=== PATIENT | male | born 1940 | race Caucasian/White ===

== ENCOUNTER → 2017-07-02 | Outpatient (CLI) | payer OTHER ==
[~2017-07-02] MED LIST: DAILY VITAMIN1 TAB PO; FLOMAX0.4 MG PO; NATURE'S BLEND400 I1 PO
== END | disposition home or self-care (01) ==
LOC: US 11:30
DX: R60.0 Localized edema (principal); I82.402 Acute embolism and thrombosis of unspecified deep veins of left lower extremity

== ENCOUNTER 2020-12-03 19:16 | Inpatient (IN) | payer MEDICARE ==
[~2020-12-03] VITALS: Ht 180.3 cm; Wt 114.1 kg
[2020-12-03 19:31] VITALS: BP 119/79
[2020-12-03 19:37] LABS: BILIRUBIN Negative (Negative); BLOOD Negative (Negative); CLARITY Clear (Clear); COLOR Yellow (Yellow); GLUCOSE Negative (Negative); KETONE Negative (Negative); LEUKO ESTERASE Negative (Negative); NITRITE Negative (Negative); PH 5.5 (4.5-8.0)
[2020-12-03 19:47] LABS: MUCOUS TRACE
[2020-12-03 20:26] LABS: BASO # 0.1 10*3/uL (0.0-0.1); BASO % 0.5 % (0.0-1.0); EOS # 0.2 10*3/uL (0.0-0.4); EOS % 1.8 % (1.0-4.0); LYMPH # 2.2 10*3/uL (1.3-4.4); LYMPH % 21.5 % (27.0-41.0); MEAN CELL VOLUME 81.3 fl (80.0-94.0); MEAN CORPUSCULAR HGB 28.2 pg (27.0-31.0); MEAN CORPUSCULAR HGB CONC 34.7 g/dl (33.0-37.0); MEAN PLATELET VOLUME 9.6 fl (9.6-12.3); MONO # 0.8 10*3/uL (0.1-1.0); MONO % 8.4 % (3.0-9.0); NEUT # 6.7 10*3/uL (2.3-7.9); NEUT % 67.5 % (47.0-73.0); PLATELET COUNT AUTOMATED 193 10*3/uL (130-400); RED BLOOD COUNT 5.29 10*6/uL (4.50-5.90)
[2020-12-03 20:37] LABS: URINE AMPHETAMINES < 1000 (1000ng/ml); URINE BARBITURATES < 200 (200ng/ml); URINE BENZODIAZEPINES < 200 (200ng/ml); URINE CANNABINOIDS (THC) < 50 (50ng/ml); URINE COCAINE < 300 (300ng/ml); URINE METHADONE < 300 (300ng/ml); URINE OPIATES < 300 (300ng/ml)
[2020-12-03 20:38] LABS: URINE PHENCYCLIDINE < 25 (25ng/ml)
[2020-12-03 20:41] LABS: ACETAMINOPHEN (TYLENOL) < 2.0 ug/ml (10-30); ALBUMIN 3.2 gm/dl (3.1-4.5); ALKALINE PHOSPHATASE 89 U/L (45-117); BUN 19 mg/dl (7-24); CHLORIDE 106 mmol/L (98-107); CREATININE 1.14 mg/dL (0.70-1.30); ETHYL ALCOHOL < 3.0 mg/dl (<3); POTASSIUM 3.8 mmol/L (3.5-5.1); SGOT/AST 19 IU/L (3-35); SGPT/ALT 26 U/L (12-78); SODIUM 138 mmol/L (136-145); TOTAL PROTEIN 7.2 gm/dL (6.4-8.2)
[2020-12-04] VITALS (8 sets, daily range): BP systolic 118–130; BP diastolic 63–111
[2020-12-04] MEDS ORDERED: EXELON1 EAC1 T (07:59)
[2020-12-04] MEDS ORDERED: SERTRALINE HYDR25 MG PO (08:00)
[2020-12-04] MEDS ORDERED: RISPERDAL0.5 MG PO (08:00)
[2020-12-04] MEDS ORDERED: HYDR25T PO (08:01)
[2020-12-05] VITALS: BP 127/89
[2020-12-05 06:13] LABS: ALBUMIN 3.2 gm/dl (3.1-4.5); BUN 19 mg/dl (7-24); CHLORIDE 104 mmol/L (98-107); CHOLESTEROL 177 mg/dL (<200); SGOT/AST 22 IU/L (3-35); SGPT/ALT 26 U/L (12-78); SODIUM 140 mmol/L (136-145); TOTAL PROTEIN 6.9 gm/dL (6.4-8.2); TRIGLYCERIDES 95 mg/dl (<150)
[2020-12-05 06:17] LABS: BASO % 0.4 % (0.0-1.0); EOS # 0.2 10*3/uL (0.0-0.4); EOS % 1.9 % (1.0-4.0); HEMATOCRIT 46.4 % (42.0-52.0); LYMPH % 21.2 % (27.0-41.0); MEAN CELL VOLUME 82.7 fl (80.0-94.0); MEAN CORPUSCULAR HGB 27.8 pg (27.0-31.0); MEAN CORPUSCULAR HGB CONC 33.6 g/dl (33.0-37.0); MEAN PLATELET VOLUME 10.9 fl (9.6-12.3); MONO # 0.9 10*3/uL (0.1-1.0); MONO % 9.5 % (3.0-9.0); NEUT # 6.2 10*3/uL (2.3-7.9); NEUT % 66.8 % (47.0-73.0); PLATELET COUNT AUTOMATED 180 10*3/uL (130-400); RED BLOOD COUNT 5.61 10*6/uL (4.50-5.90); RED CELL DISTRI WIDTH 13.2 % (0-14.5); WHITE BLOOD COUNT 9.4 10*3/uL (4.8-10.8)
[2020-12-05 06:20] LABS: ALKALINE PHOSPHATASE 71 U/L (45-117); FREE T4 0.91 ng/dl (0.76-1.46); LDL CHOLESTEROL 125 mg/dL (9-159)
[2020-12-05 08:00] VITALS: BP 141/55
[2020-12-05 08:10] LABS: VITAMIN D, 25-HYDROXY 38.3 ng/mL (30-100)
[2020-12-05 12:00] VITALS: BP 130/66
[2020-12-05 16:00] VITALS: BP 143/98
[2020-12-05 20:00] VITALS: BP 148/64
[2020-12-06] VITALS: BP 140/69
[2020-12-06 08:00] VITALS: BP 137/56
[2020-12-06 12:00] VITALS: BP 131/68
[2020-12-06 16:00] VITALS: BP 134/76; BP 174/95
== END 2020-12-06 17:57 | DRG 65 ==
LOC: ED 19:16 → EDHOLD 12-04 08:00 → 5E 12-04 08:00 → EDHOLD 12-04 08:27 → 5E 12-04 11:00
PROVIDERS: Emergency Medicine; Registered Nurse; ADMIT Family Medicine; ATTEND Family Medicine
DX: I62.00 Nontraumatic subdural hemorrhage, unspecified (principal); F02.81 Dementia in other diseases classified elsewhere, unspecified severity, with behavioral disturbance; N40.0 Benign prostatic hyperplasia without lower urinary tract symptoms; C67.9 Malignant neoplasm of bladder, unspecified; Z66 Do not resuscitate; Z51.5 Encounter for palliative care; R41.9 Unspecified symptoms and signs involving cognitive functions and awareness; Z20.822 Contact with and (suspected) exposure to COVID-19; G30.9 Alzheimer's disease, unspecified; F39 Unspecified mood [affective] disorder; R73.9 Hyperglycemia, unspecified; E83.41 Hypermagnesemia; Z90.49 Acquired absence of other specified parts of digestive tract; Z82.49 Family history of ischemic heart disease and other diseases of the circulatory system; Z81.1 Family history of alcohol abuse and dependence; Z82.5 Family history of asthma and other chronic lower respiratory diseases; Z79.899 Other long term (current) drug therapy

== ENCOUNTER 2020-12-06 15:15 | Inpatient (IN) | payer MEDICARE ==
[~2020-12-06] VITALS: Ht 180.3 cm; Wt 113.9 kg
[~2020-12-06 15:15] MED LIST changes: +EXELON1 EAC1 T; +HYDR25T PO; +RISPERDAL0.5 MG PO; +SERTRALINE HYDR25 MG PO
[2020-12-06 17:38] VITALS: BP 107/89
[2020-12-06 20:00] VITALS: BP 107/89
[2020-12-07 07:11] VITALS: BP 110/76
[2020-12-07 20:00] VITALS: BP 144/76
[2020-12-08 07:38] VITALS: BP 131/68
[2020-12-09 07:37] VITALS: BP 124/73
[2020-12-09 12:59] LABS: BILIRUBIN Negative (Negative); BLOOD Negative (Negative); CLARITY Clear (Clear); COLOR Yellow (Yellow); GLUCOSE 1+ (Negative); KETONE Negative (Negative); LEUKO ESTERASE Negative (Negative); NITRITE Negative (Negative)
[2020-12-09 13:10] LABS: BACTERIA TRACE; MUCOUS 1+
[2020-12-09 20:00] VITALS: BP 154/58
[2020-12-10 07:52] VITALS: BP 155/77
[2020-12-10 20:00] VITALS: BP 152/60
[2020-12-11 07:28] VITALS: BP 116/71
[2020-12-11 20:00] VITALS: BP 133/71
[2020-12-12 07:35] VITALS: BP 120/68
[2020-12-12 20:00] VITALS: BP 135/68
[2020-12-13 07:33] VITALS: BP 141/78
[2020-12-13 20:00] VITALS: BP 132/84
[2020-12-14 07:39] VITALS: BP 108/62
[2020-12-14 20:00] VITALS: BP 138/76
[2020-12-15 07:32] VITALS: BP 125/71
[2020-12-15 20:00] VITALS: BP 135/69
[2020-12-16 07:29] VITALS: BP 146/74
[2020-12-16 08:16] LABS: BASO # 0.1 10*3/uL (0.0-0.1); BASO % 0.4 % (0.0-1.0); EOS # 0.1 10*3/uL (0.0-0.4); EOS % 0.8 % (1.0-4.0); HEMATOCRIT 48.6 % (42.0-52.0); LYMPH # 2.1 10*3/uL (1.3-4.4); LYMPH % 15.3 % (27.0-41.0); MEAN CELL VOLUME 82.5 fl (80.0-94.0); MEAN CORPUSCULAR HGB 28.2 pg (27.0-31.0); MEAN CORPUSCULAR HGB CONC 34.2 g/dl (33.0-37.0); MEAN PLATELET VOLUME 10.7 fl (9.6-12.3); MONO # 1.3 10*3/uL (0.1-1.0); MONO % 9.6 % (3.0-9.0); NEUT # 10.2 10*3/uL (2.3-7.9); NEUT % 73.3 % (47.0-73.0); PLATELET COUNT AUTOMATED 151 10*3/uL (130-400); RED BLOOD COUNT 5.89 10*6/uL (4.50-5.90); RED CELL DISTRI WIDTH 12.8 % (0-14.5); WHITE BLOOD COUNT 13.9 10*3/uL (4.8-10.8)
[2020-12-16 08:32] LABS: ALBUMIN 2.7 gm/dl (3.1-4.5); ALKALINE PHOSPHATASE 85 U/L (45-117); BUN 41 mg/dl (7-24); CHLORIDE 103 mmol/L (98-107); CREATININE 1.63 mg/dL (0.70-1.30); POTASSIUM 2.9 mmol/L (3.5-5.1); SGOT/AST 35 IU/L (3-35); SGPT/ALT 44 U/L (12-78); SODIUM 136 mmol/L (136-145); TOTAL PROTEIN 7.8 gm/dL (6.4-8.2)
[2020-12-16 08:36] LABS: TROPONIN I < 0.015 ng/ml (<0.045)
[2020-12-16 11:04] LABS: BILIRUBIN Negative (Negative); BLOOD Negative (Negative); CLARITY Clear (Clear); COLOR Dark Yellow (Yellow); GLUCOSE Negative (Negative); KETONE 1+ (Negative); LEUKO ESTERASE 1+ (Negative); NITRITE Negative (Negative); PH 5.5 (4.5-8.0); SPECIFIC GRAVITY 1.015 (1.001-1.030)
[2020-12-16 11:34] LABS: MUCOUS TRACE
[2020-12-16 16:28] VITALS: BP 98/76
[2020-12-17 06:33] LABS: POTASSIUM 2.8 mmol/L (3.5-5.1)
[2020-12-17 06:37] LABS: CREATININE 1.5 mg/dL (0.70-1.30)
[2020-12-17 07:29] VITALS: BP 112/62
[2020-12-17] MEDS ORDERED: MEMANTINE HCL10 MG PO (09:07)
[2020-12-17] MEDS ORDERED: TRIHEXYPHENIDYL2 M3 PO (09:07)
[2020-12-17] MEDS ORDERED: RIVASTIGMINE1 EAC2 T (09:07)
[2020-12-17] MEDS ORDERED: DIVALPROEX SOD125 M1 PO (09:07)
[2020-12-17] MEDS ORDERED: ROZEREM8 MG PO (09:07)
[2020-12-17] MEDS ORDERED: INVEGA SUSTENN156 MG IM (09:07)
[2020-12-17] MEDS ORDERED: KLOR-CON M2020 ME1 PO (11:59)
== END 2020-12-17 14:10 | DRG 883 ==
LOC: 3N 15:15
PROVIDERS: Internal Medicine; ADMIT Psychiatry & Neurology Psychiatry; ATTEND Psychiatry & Neurology Psychiatry
DX: F63.81 Intermittent explosive disorder (principal); F02.81 Dementia in other diseases classified elsewhere, unspecified severity, with behavioral disturbance; G30.9 Alzheimer's disease, unspecified; Z20.822 Contact with and (suspected) exposure to COVID-19; C67.9 Malignant neoplasm of bladder, unspecified; N40.0 Benign prostatic hyperplasia without lower urinary tract symptoms; R41.9 Unspecified symptoms and signs involving cognitive functions and awareness; Z90.49 Acquired absence of other specified parts of digestive tract; Z82.49 Family history of ischemic heart disease and other diseases of the circulatory system; Z81.1 Family history of alcohol abuse and dependence; Z82.5 Family history of asthma and other chronic lower respiratory diseases; Z79.899 Other long term (current) drug therapy